=== PATIENT | female | born 1945 | race Caucasian/White ===

== ENCOUNTER → 2016-12-26 | Outpatient (CLI) | payer MEDICARE, BC ==
[~2016-12-26] MED LIST: CLARITIN10 MG PO; DIGESTIVE PROB1 EACH PO; ECHINACEA125 MG PO; FISH OIL 1,0001 EAC1 PO; FLEXERIL 10 MG10 MG PO; LOSARTAN POTASS25 MG PO; MAGNESIUM GLUCO30 MG PO; MAGOX 400400 MG PO; MULTI-VITAMIN1 EACH PO; VITAMIN D35000 UNIT PO; [UNRECOGNIZED DRUG - OTHER] PO
[2016-12-26 10:59] LABS: BUN/CREATININE RATIO 20 (0-10)
== END ==
LOC: LAB 10:00
PROVIDERS: Emergency Medicine
DX: G89.4 Chronic pain syndrome (principal); I10 Essential (primary) hypertension; M54.5 Low back pain; M25.559 Pain in unspecified hip
CPT/HCPCS: 36415; 80053; 80061

== ENCOUNTER → 2017-03-01 | Outpatient (CLI) | payer MEDICARE, BC | LOC: KOH-I 02-28 08:00 → EXRD 02-28 14:30 → KOH-I 02-28 14:30 | DX: Z13.820 Encounter for screening for osteoporosis (principal) | CPT/HCPCS: 77080 ==

== ENCOUNTER → 2017-03-30 | Outpatient (CLI) | payer MEDICARE, BC | LOC: KOH-I 11:20 | DX: R22.41 Localized swelling, mass and lump, right lower limb (principal); M79.89 Other specified soft tissue disorders; M89.8X7 Other specified disorders of bone, ankle and foot | CPT/HCPCS: 73718 ==

== ENCOUNTER → 2020-11-03 | Outpatient (CLI) | payer MEDICARE, BC ==
[~2020-11-03] MED LIST changes: +COQ-1030 MG PO; +COZAAR25 MG PO; +CYCLOBENZAPRINE5 MG PO; +DOCUSATE SODIU100 MG PO; +MAGNESIUM500 MG PO; +TYLENOL EL325 MG/10 PO; +VITAMIN B-121000 MC3 SL; +VITAMIN D400 UNI2 PO; +[UNRECOGNIZED DRUG - OTHER] INJ; +[UNRECOGNIZED DRUG - OTHER] PO
== END ==
LOC: SLEEP 13:08
DX: G47.33 Obstructive sleep apnea (adult) (pediatric) (principal)
CPT/HCPCS: 95811

== ENCOUNTER → 2021-01-19 | Outpatient (CLI) | payer MEDICARE, BC | LOC: KOH-I 01-14 09:00 | DX: J32.0 Chronic maxillary sinusitis (principal); J34.89 Other specified disorders of nose and nasal sinuses | CPT/HCPCS: 70486 ==

== ENCOUNTER 2021-03-28 09:30 | Observation (INO) | payer MEDICARE, BC ==
[~2021-03-28] VITALS: Ht 154.9 cm; Wt 90.7 kg
[~2021-03-28 09:30] MED LIST changes: -COQ-1030 MG PO; -CYCLOBENZAPRINE5 MG PO; -DOCUSATE SODIU100 MG PO; -TYLENOL EL325 MG/10 PO; -VITAMIN B-121000 MC3 SL
[2021-03-28] MEDS ORDERED: CYCLOBENZAPRINE5 MG PO (10:03)
[2021-03-28] MEDS ORDERED: COQ-1030 MG PO (10:11)
[2021-03-28 10:47] LABS: HEMOGLOBIN 13.1 gm/dl (12.3-15.3); RED BLOOD COUNT 4.35 M/UL (4.00-5.10); WHITE BLOOD COUNT 4.8 K/UL (4.5-11.0)
[2021-03-28 11:11] LABS: BUN/CREATININE RATIO 27 (0-10)
[2021-03-28] MEDS ORDERED: VITAMIN B-121000 MC3 SL (15:55)
[2021-03-28] MEDS ORDERED: CLARITIN10 MG PO (15:56)
[2021-03-28] MEDS ORDERED: DOCUSATE SODIU100 MG PO (15:57)
[2021-03-28] MEDS ORDERED: TYLENOL EL325 MG/10 PO (15:58)
[2021-03-29] MEDS ORDERED: COZAAR25 MG PO (09:41)
== END 2021-03-29 11:30 | disposition home or self-care (01) ==
LOC: ER1 09:30 → PROG CARE 15:15 → CDU 15:15 → PROG CARE 17:47
PROVIDERS: Emergency Medicine; ADMIT Internal Medicine
DX: I16.0 Hypertensive urgency (principal); I10 Essential (primary) hypertension; Z96.653 Presence of artificial knee joint, bilateral; Z86.79 Personal history of other diseases of the circulatory system; Z85.3 Personal history of malignant neoplasm of breast; R94.31 Abnormal electrocardiogram [ECG] [EKG]; Z90.49 Acquired absence of other specified parts of digestive tract; Z88.2 Allergy status to sulfonamides; I08.3 Combined rheumatic disorders of mitral, aortic and tricuspid valves
CPT/HCPCS: ECHO; 71045; 80053; 82550; 82553; 84439; 84443; 84484; 85025; 93005; 93306; 96374; 99284; G0378; J0360

== ENCOUNTER → 2021-04-26 | Outpatient (CLI) | payer MEDICARE, BC ==
[~2021-04-26] MED LIST changes: +COQ-1030 MG PO; +CYCLOBENZAPRINE5 MG PO; +DOCUSATE SODIU100 MG PO; +TYLENOL EL325 MG/10 PO; +VITAMIN B-121000 MC3 SL
== END ==
LOC: MRI 09:30
DX: R51.9 Headache, unspecified (principal); Z88.2 Allergy status to sulfonamides; Z88.8 Allergy status to other drugs, medicaments and biological substances
CPT/HCPCS: 70553; A9577

== ENCOUNTER → 2021-04-27 | Outpatient (CLI) | payer MEDICARE, BC ==
[2021-04-27 10:44] LABS: BUN/CREATININE RATIO 26 (0-10)
== END ==
LOC: LAB 09:45
PROVIDERS: Emergency Medicine
DX: R53.83 Other fatigue (principal); D64.89 Other specified anemias; I97.2 Postmastectomy lymphedema syndrome; R00.2 Palpitations; M15.8 Other polyosteoarthritis; R03.0 Elevated blood-pressure reading, without diagnosis of hypertension; R60.0 Localized edema
CPT/HCPCS: 36415; 80053

== ENCOUNTER → 2021-05-10 | Outpatient (CLI) | payer MEDICARE, BC | LOC: KOH-I 09:03 | DX: M79.671 Pain in right foot (principal); M19.071 Primary osteoarthritis, right ankle and foot | CPT/HCPCS: 73630 ==

== ENCOUNTER 2021-09-18 22:43 | Emergency (ER) | payer MEDICARE, BC ==
[2021-09-19 01:05] LABS: HEMOGLOBIN 13.3 gm/dl (12.3-15.3); RED BLOOD COUNT 4.45 M/UL (4.00-5.10); WHITE BLOOD COUNT 5.7 K/UL (4.5-11.0)
[2021-09-19 01:35] LABS: BUN/CREATININE RATIO 32 (0-10)
== END 2021-09-19 06:37 | disposition home or self-care (01) ==
LOC: ER1 22:43
PROVIDERS: Physician Assistant Medical
DX: R07.9 Chest pain, unspecified (principal); I10 Essential (primary) hypertension; Z90.710 Acquired absence of both cervix and uterus
CPT/HCPCS: 36415; 71045; 80053; 82550; 82553; 83874; 84484; 85025; 93005; 99285

== ENCOUNTER 2021-11-17 16:39 | Emergency (ER) | payer MEDICARE, BC ==
[2021-11-17 21:29] LABS: HEMOGLOBIN 14.1 gm/dl (12.3-15.3); RED BLOOD COUNT 4.84 M/UL (4.00-5.10)
[2021-11-17 21:50] LABS: BUN/CREATININE RATIO 26 (0-10)
== END 2021-11-18 00:15 | disposition left against medical advice (07) ==
LOC: ER1 16:39
PROVIDERS: Emergency Medicine
DX: U07.1 COVID-19 (principal); J40 Bronchitis, not specified as acute or chronic; I10 Essential (primary) hypertension; Z88.2 Allergy status to sulfonamides; Z88.8 Allergy status to other drugs, medicaments and biological substances
CPT/HCPCS: 36600; 71045; 80053; 82550; 82553; 82803; 83874; 83880; 84484; 85025; 85379; 93005; 99283

== ENCOUNTER 2022-03-08 10:54 | Observation (INO) | payer MEDICARE, BC ==
[~2022-03-08] VITALS: Ht 157.5 cm; Wt 90.3 kg
[2022-03-08 12:07] LABS: HEMOGLOBIN 13.5 gm/dl (12.3-15.3); RED BLOOD COUNT 4.57 M/UL (4.00-5.10); WHITE BLOOD COUNT 4.4 K/UL (4.5-11.0)
[2022-03-08 12:35] LABS: BUN/CREATININE RATIO 27 (0-10)
[2022-03-08] MEDS ORDERED: LOSARTAN POTASS50 MG PO (14:05)
[2022-03-09 02:54] LABS: HEMOGLOBIN 12.5 gm/dl (12.3-15.3); RED BLOOD COUNT 4.25 M/UL (4.00-5.10)
[2022-03-09 03:45] LABS: BUN/CREATININE RATIO 29 (0-10)
[2022-03-09] MEDS ORDERED: ASPIRIN81 MG PO (14:57)
[2022-03-09] MEDS ORDERED: PROTONIX 40 MG40 M1 PO (14:57)
[2022-03-09] MEDS ORDERED: VALSARTAN80 MG PO (14:57)
--- NOTE | 2022-03-09 16:10 | NUR ---
PT BP ELEVATED WHEN FOCUSED ON THE MACHINE TAKING BP, ONCE PT ABLE TO RELAX,SBP LESS THAN 160. PT DOES STATE SHE IS AWARE AND NERVOUS ABOUT HER PRESSURE READING HIGH AND PREVENTING DC HOME. PT REQUESTS TO BE DC'D HOME AFTER NOTING 3 SBP LESS THAN 160
== END 2022-03-09 16:52 | disposition home or self-care (01) ==
LOC: ER1 10:54 → CCU 13:53 → CDU 13:53 → CCU 19:02
PROVIDERS: Emergency Medicine; ADMIT Internal Medicine
DX: R07.89 Other chest pain (principal); I16.0 Hypertensive urgency; I10 Essential (primary) hypertension; E66.9 Obesity, unspecified; G47.33 Obstructive sleep apnea (adult) (pediatric); Z68.34 Body mass index [BMI] 34.0-34.9, adult; Z79.899 Other long term (current) drug therapy; Z85.3 Personal history of malignant neoplasm of breast; Z87.891 Personal history of nicotine dependence; Z88.2 Allergy status to sulfonamides; Z88.5 Allergy status to narcotic agent; Z88.6 Allergy status to analgesic agent; Z88.8 Allergy status to other drugs, medicaments and biological substances
CPT/HCPCS: ECHO; 36415; 71045; 78452; 80053; 80061; 82550; 82553; 83036; 83735; 83880; 84484; 85025; 85610; 86140; 93005; 93306; 96372; 99285; A9502; G0378; J1650; J2785

== ENCOUNTER → 2022-03-10 | Outpatient (CLI) | payer MEDICARE, BC ==
[~2022-03-10] MED LIST changes: +ASPIRIN81 MG PO; +LOSARTAN POTASS50 MG PO; +PROTONIX 40 MG40 M1 PO; +VALSARTAN80 MG PO
[2022-03-10 11:04] LABS: HEMOGLOBIN 13.7 gm/dl (12.3-15.3); RED BLOOD COUNT 4.64 M/UL (4.00-5.10)
[2022-03-10 11:26] LABS: BUN/CREATININE RATIO 25 (0-10)
[2022-03-11 18:13] LABS: CHOLESTEROL, TOTAL 222 mg/dL (100-199); HDL SIZE 8.7 nm (>=9.2); HDL-C 47 mg/dL (>39); HDL-P (TOTAL) 30.3 umol/L (>=30.5); LARGE HDL-P 3.7 umol/L (>=4.8); LARGE VLDL-P 4.4 nmol/L (<=2.7); LDL-C 152 mg/dL (0-99); LDL-P 1797 nmol/L (<1000); LP-IR SCORE 63 (<=45); SMALL LDL-P 823 nmol/L (<=527); TRIGLYCERIDES 126 mg/dL (0-149)
== END ==
LOC: LAB 10:14
PROVIDERS: Emergency Medicine
DX: R53.83 Other fatigue (principal); I10 Essential (primary) hypertension; E78.2 Mixed hyperlipidemia
CPT/HCPCS: 36415; 80053; 80061; 82533; 83704; 84443; 85025

== ENCOUNTER → 2022-04-20 | Outpatient (CLI) | payer MEDICARE, BC | LOC: EXRD 14:03 | DX: Z01.810 Encounter for preprocedural cardiovascular examination (principal) | CPT/HCPCS: 93926 ==